=== PATIENT | male | born 1985 | race Caucasian/White ===

== ENCOUNTER 2017-01-22 09:10 | Emergency (ER) | END 2017-01-22 11:26 | disposition home or self-care (01) | DX: J02.9 Acute pharyngitis, unspecified (principal) | CPT/HCPCS: 87880; Z7502 ==

== ENCOUNTER 2017-03-12 09:13 | Emergency (ER) | payer MEDICAID ==
[~2017-03-12] VITALS: Ht 175.3 cm; Wt 93.1 kg
[~2017-03-12 09:13] MED LIST: CETI10CA PO; FLUT16SP17 NASAL
[2017-03-12 09:16] VITALS: Ht 175.3 cm; Wt 93.1 kg
[2017-03-12] MEDS ORDERED: KETOROLAC 30 MG INJ IV STA (09:40)
[2017-03-12 10:14] LABS: BASOPHILS % 0.6 % (0.0-2.0); EOSINOPHILS # 0.2 10^3/ul (0.0-0.5); EOSINOPHILS % 2.6 % (0.0-7.0); HEMATOCRIT 43.3 % (42.0-52.0); LYMPHOCYTES % 28.9 % (15.0-51.0); MEAN CORPUSCULAR HEMOGLOBIN 31.7 pg (29.0-33.0); MEAN CORPUSCULAR HGB CONC 34.6 g/dl (32.0-37.0); MEAN CORPUSCULAR VOLUME 91.5 fl (82.0-101.0); MONOCYTE # 0.5 10^3/ul (0.3-0.9); MONOCYTES % 6.8 % (0.0-11.0); NEUTROPHIL # 4.3 10^3/ul (1.6-7.5); NEUTROPHILS % 60.8 % (39.0-77.0); PLATELET COUNT 181 10^3/UL (140-415); RED BLOOD COUNT 4.73 10^6/ul (4.70-6.10); RED CELL DISTRIBUTION WIDTH 12.2 % (11.5-14.5); WHITE BLOOD COUNT 7.1 10^3/ul (4.8-10.8)
--- NOTE | 2017-03-12 10:22 | RADRPT ---
PROCEDURE: CT Abdomen and pelvis without contrast. CLINICAL INDICATION: Left-sided abdominal pain and flank pain TECHNIQUE: CT scan of the abdomen and pelvis without contrast was performed on a multidetector hig h-resolution CT scan. . Coronal and sagittal reformatted images were obtained from the axial [facility] e images. Standard CT scan of the abdomen pelvis without contrast protocols were performed. The total exam CTDI equals 13.34 mGy and the total exam DLP equals 871.51 mGy-cm. One or more of the following dose reduction techniques were used: - Automated exposure control. - Adjustment of the mA and/or kV according to patient size. Use of iterative reconstruction technique. Dicom images are available COMPARISON: None. FINDINGS: The kidneys are normal in size without calcified renal calculi, hydronephrosis or intra renal masses bilaterally. The ureters and urinary bladder are unremarkable. Prostate unremarkable. No evidence of intra-abdominal free air, free fluid, abscesses or lymphadenopathy. There is moderate wall thickening of the gastric antrum which may be due to lack of optimal distensi on however though other etiologies including gastritis cannot be excluded . Recommend clinical corre lation. Remainder the stomach is unremarkable.. The small bowel, colon and appendix are unremarkable . No CT evidence of appendicitis or diverticulitis. Liver spleen pancreas adrenal glands and gallbladder are unremarkable. No evidence of biliary ductal dilation. Tiny umbilical fat-containing hernia without herniated bowel or strangulation. Aorta unremarkable. L lei bases unremarkable. Osseous structures unremarkable. IMPRESSION: 1. No evidence of calcified urinary calculi or obstructive uropathy. 2. No evidence of appendicitis or diverticulitis. 3. Moderate wall thickening of the gastric antrum likely due to lack of optimal distension. Other e tiologies including gastritis cannot be excluded. Recommend clinical correlation. 4. Tiny umbilical fat-containing hernia without herniated bowel or strangulation. RPTAT:AAJJ Physician Willie Date Time Electronically viewed and signed by Physician Willie on 03/12/2017 10:21 BM/
--- NOTE | 2017-03-12 10:32 | ERD ---
ER Documentation Chief Complaint Chief Complaint abdominal pain x 2 weeks HPI This is a 31-year-old male presents the emergency department today complaining of abdominal pain and left-sided flank pain for the past 2 weeks that is worse over the past couple of days. States he did take medication for the pain but he is unsure what it is. Denies any constipation, dysuria, fevers or chills, nausea or vomiting. ROS All systems reviewed and are negative except as per history of present illness. Medications Home Meds Active Scripts Cyclobenzaprine Hcl* (Cyclobenzaprine Hcl*) 10 Mg Tablet, 10 MG PO QHS, #7 TAB Prov:SARAH RILEY PA-C 03/12/17 Naproxen* (Naprosyn*) 500 Mg Tablet, 500 MG PO BID Y for PAIN AND/OR INFLAMMATION, #30 TAB Prov:SARAH RILEY PA-C 03/12/17 Cetirizine Hcl* (Zyrtec*) 10 Mg Capsule, 10 MG PO DAILY, #30 TAB.CHEW Prov:EZEKIEL PINK PA-C 01/22/17 Fluticasone Propionate* (Fluticasone Propionate* Nasal) 50 Mcg/[place] - 16 Gm [place].susp, 1 SPRAY NASAL BID, #1 BOTTLE TO EACH NOSTRIL Prov:EZEKIEL PINK PA-C 01/22/17 Allergies Allergies: Coded Allergies: No Known Allergy (Unverified , 01/22/17) PMhx/Soc History of Surgery: No Anesthesia Reaction: No Hx Neurological Disorder: No Hx Respiratory Disorders: No Hx Cardiac Disorders: No Hx Psychiatric Problems: No Hx Miscellaneous Medical Probl: No Hx Alcohol Use: No Hx Substance Use: No Hx Tobacco Use: No Smoking Status: Never smoker Physical Exam Vitals Vital Signs Date Time Temp Pulse Resp B/P Pulse Ox O2 Delivery O2 Flow Rate FiO2 03/12/17 09:16 98.0 95 18 135/74 98 Physical Exam Const: NAD Head: Atraumatic Eyes: Normal Conjunctiva ENT: Normal External Ears, Nose and Mouth. Neck: Full range of motion..~ No meningismus. Resp: Clear to auscultation bilaterally Cardio: Regular rate and rhythm, no murmurs Abd: Soft,left sided abdominal and pelvic pain non distended. Normal bowel sounds Skin: No petechiae or rashes Back: Lumbar spine no midline units. Left-sided flank pain. No CVA tenderness. Ext: No cyanosis, or edema Neur: Awake and alert Psych: Normal Mood and Affect Result Diagram: 03/12/17 0950 03/12/17 0950 Results 24 hrs Laboratory Tests Test 03/12/17 09:50 03/12/17 10:19 White Blood Count 7.110^3/ul Red Blood Count 4.7310^6/ul Hemoglobin 15.0g/dl Hematocrit 43.3% Mean Corpuscular Volume 91.5fl Mean Corpuscular Hemoglobin 31.7pg Mean Corpuscular Hemoglobin Concent 34.6g/dl Red Cell Distribution Width 12.2% Platelet Count 92200^3/UL Mean Platelet Volume 12.0fl Neutrophils % 60.8% Lymphocytes % 28.9% Monocytes % 6.8% Eosinophils % 2.6% Basophils % 0.6% Nucleated Red Blood Cells % 0.0/100WBC Neutrophils # 4.310^3/ul Lymphocytes # 2.010^3/ul Monocytes # 0.510^3/ul Eosinophils # 0.210^3/ul Basophils # 0.010^3/ul Nucleated Red Blood Cells # 0.010^3/ul Sodium Level 143mmol/L Potassium Level 3.8mmol/L Chloride Level 106mmol/L Carbon Dioxide Level 25mmol/L Anion Gap 16 Blood Urea Nitrogen 14mg/dl Creatinine 0.79mg/dl Glucose Level 118mg/dl Calcium Level 10.1mg/dl Total Bilirubin 0.3mg/dl Direct Bilirubin 0.00mg/dl Indirect Bilirubin 0.3mg/dl Aspartate Amino Transf (AST/SGOT) 30IU/L Alanine Aminotransferase (ALT/SGPT) 55IU/L Alkaline Phosphatase 83IU/L Total Protein 8.2g/dl Albumin 4.5g/dl Globulin 3.70g/dl Albumin/Globulin Ratio 1.21 Lipase 53U/L Urine Color YELLOW Urine Clarity CLEAR Urine pH 5.0 Urine Specific [place] 1.017 Urine Ketones NEGATIVEmg/dL Urine Nitrite NEGATIVEmg/dL Urine Bilirubin NEGATIVEmg/dL Urine Urobilinogen NEGATIVEmg/dL Urine Leukocyte Esterase NEGATIVELeu/ul Urine Microscopic RBC 0/HPF Urine Microscopic WBC 0/HPF Urine Hemoglobin 1+mg/dL Urine Glucose NEGATIVEmg/dL Urine Total Protein NEGATIVEmg/dl Current Medications Medications (Trade) Dose Ordered Sig/Mary Route PRN Reason Start Time Stop Time Status Last Admin Dose Admin Ketorolac Tromethamine (Toradol) 30 mg ONCE STAT IV 03/12/17 09:40 03/12/17 09:41 DC 03/12/17 09:51 DIAGNOSTIC IMAGING REPORT Patient: VETO PAL : 1985 Age: 31 Sex: M MR #: [id number] DOS: 03/12/1740 Ordering MD: SARAH RILEY PA-C Location: [facility] Room/Bed: PROCEDURE: CT Abdomen and pelvis without contrast. CLINICAL INDICATION: Left-sided abdominal pain and flank pain TECHNIQUE: CT scan of the abdomen and pelvis without contrast was performed on a multidetector high-resolution CT scan. . Coronal and sagittal reformatted images were obtained from the axial source images. Standard CT scan of the abdomen pelvis without contrast protocols were performed. The total exam CTDI equals 13.34 mGy and the total exam DLP equals 871.51 mGy- cm. One or more of the following dose reduction techniques were used: - Automated exposure control. - Adjustment of the mA and/or kV according to patient size. Use of iterative reconstruction technique. Dicom images are available COMPARISON: None. FINDINGS: The kidneys are normal in size without calcified renal calculi, hydronephrosis or intra renal masses bilaterally. The ureters and urinary bladder are unremarkable. Prostate unremarkable. No evidence of intra-abdominal free air, free fluid, abscesses or lymphadenopathy. There is moderate wall thickening of the gastric antrum which may be due to lack of optimal distension however though other etiologies including gastritis cannot be excluded . Recommend clinical correlation. Remainder the stomach is unremarkable.. The small bowel, colon and appendix are unremarkable. No CT evidence of appendicitis or diverticulitis. Liver spleen pancreas adrenal glands and gallbladder are unremarkable. No evidence of biliary ductal dilation. Tiny umbilical fat-containing hernia without herniated bowel or strangulation. Aorta unremarkable. Lung bases unremarkable. Osseous structures unremarkable. IMPRESSION: 1. No evidence of calcified urinary calculi or obstructive uropathy. 2. No evidence of appendicitis or diverticulitis. 3. Moderate wall thickening of the gastric antrum likely due to lack of optimal distension. Other etiologies including gastritis cannot be excluded. Recommend clinical correlation. 4. Tiny umbilical fat-containing hernia without herniated bowel or strangulation. RPTAT:AAJJ Physician Willie Date Time Electronically viewed and signed by Earl Riley Physician on 03/12/2017 10:21 BM/ CC: SARAH RILEY PA-C Procedures/MDM This a 31-year-old male who presents the emergency department today complaining of left-sided abdominal pain and flank pain for the past 2 weeks that is worse for the past couple of days. Given patient's complaints and physical exam I did obtain laboratory work as well as imaging Laboratory workup shows no elevated white blood cell count. He is not anemic. Platelets are within normal limits. Electrolytes are within normal limits. Glucose is within normal limits. Liver enzymes are within normal limits. Lipase is within normal limits. UA is negative for infection. 1+ hemoglobin with no microscopic red blood cells. CT abdomen pelvis shows no evidence of calcified urinary calculi or obstructive uropathy. There is no evidence of appendicitis or diverticulitis. There is moderate wall thickening of the gastric antrum likely due to lack of optimal distention. Other etiologies including gastritis cannot be excluded. There is a tiny umbilical fat-containing hernia without herniated bowel or strangulation. Patient has abdominal and back pain of uncertain etiology. His back pain may be musculoskeletal nature. He is afebrile and otherwise well-appearing have low suspicion for sepsis, cauda equina or abscess. He has no loss of bowel or bladder control. Low suspicion for acute fracture dislocation. Patient has no midline tenderness I do not feel he requires imaging at this time. Low suspicion for acute surgical abdomen. Given Toradol here in the emergency department. He will be given a prescription for Naprosyn extra for home. Patient was also requesting referral information dentist. He was given information for [facility] At this time the patient is stable for discharge and outpatient management. Patient should follow up with their PCP in the next 1-2 days. They may return to the emergency department sooner for any persistent or worsening of symptoms. Patient understood and agreed with the plan. Discussed patient with Dr. Amaya and she is in agreement with the plan. Departure Diagnosis: Primary Impression: Abdominal pain Abdominal location: left lower quadrant Qualified Code: R10.32 - Left lower quadrant pain Additional Impression: Back pain Back pain location: low back pain Chronicity: unspecified Back pain laterality: left Sciatica presence: without sciatica Qualified Code: M54.5 - Left-sided low back pain without sciatica, unspecified chronicity Condition: SARAH Sparks PA-C Mar 12, 2017 10:32
[2017-03-12 10:39] LABS: ALBUMIN 4.5 g/dl (3.3-4.9); ALBUMIN/GLOBULIN RATIO 1.21; BILIRUBIN,INDIRECT 0.3 mg/dl (0-1.1); BILIRUBIN,TOTAL 0.3 mg/dl (0.2-1.3); CALCIUM 10.1 mg/dl (8.4-10.2); CREATININE 0.79 mg/dl (0.61-1.24); POTASSIUM 3.8 mmol/L (3.5-5.1); TOTAL PROTEIN 8.2 g/dl (6.1-8.1)
[2017-03-12 10:41] LABS: ADD UMIC YES; UR ASCORBIC ACID NEGATIVE (NEGATIVE); UR BILIRUBIN (Dip) NEGATIVE (NEGATIVE); UR BLOOD (Dip) 1+ mg/dL (NEGATIVE); UR CLARITY CLEAR (CLEAR); UR COLOR YELLOW (YELLOW); UR GLUCOSE (Dip) NEGATIVE (NEGATIVE); UR KETONES (Dip) NEGATIVE (NEGATIVE); UR LEUKOCYTE ESTERASE (Dip) NEGATIVE Leu/ul (NEGATIVE); UR NITRITE (Dip) NEGATIVE (NEGATIVE); UR RBC 0 /HPF (0-5); UR SPECIFIC GRAVITY (Dip) 1.017 (1.003-1.030); UR TOTAL PROTEIN (Dip) NEGATIVE (NEGATIVE); UR UROBILINOGEN (Dip) NEGATIVE (NEGATIVE)
[2017-03-12] MEDS ORDERED: NAPR-260 PO (11:23)
[2017-03-12] MEDS ORDERED: CYCL-319 PO (11:24)
== END 2017-03-12 11:30 | disposition home or self-care (01) ==
LOC: FTE 09:13
DX: R10.32 Left lower quadrant pain (principal); M54.5 Low back pain
CPT/HCPCS: 74176; 80053; 81001; 83690; 85025; 96374; J1885; Z7502

== ENCOUNTER 2017-05-18 19:07 | Emergency (ER) | END 2017-05-19 00:19 | disposition home or self-care (01) ==

== ENCOUNTER 2018-10-14 21:32 | Emergency (ER) | payer MEDICAID, OTHER ==
[~2018-10-14] VITALS: Ht 175.3 cm; Wt 93.0 kg
[~2018-10-14 21:32] MED LIST changes: +CYCL10TA7 PO; +HYDR-4011 PO; +IBUP-1542 PO; +NAPR-985 PO; +PSEU-79 PO
[2018-10-14 21:36] VITALS: Ht 175.3 cm; Wt 93.0 kg
[2018-10-14] MEDS ORDERED: TETRACAINE 0.5% 4 ML OPH LEFT EYE ONE (23:00)
[2018-10-14] MEDS ORDERED: FLUORESCEIN STRIP LEFT EYE ONE (23:00)
[2018-10-15 00:40] VITALS: BP 134/92; PULSE 63; RESP 20
--- NOTE | 2018-10-15 00:40 | ERD ---
ER Documentation Chief Complaint Chief Complaint painful& red sclera of L eye, he said he feels the "lens is moving" HPI This is a 33-year-old male with no significant past medical history who is presenting with a foreign body sensation in the left eye. The patient reports that his eye was irritated and red earlier today. He thought that there is may be something in his eye. He touched his eyes and felt a thin film,. He does not endorse getting anything into the eye. He does not wear contacts. The patient still feels that the eye is slightly irritated, but he does currently report improvement. The patient does not have any visual acuity changes. He does not endorse any crusting or purulence from the eye. The patient has no other complaints. The patient denies feeling sick recently. The patient denies fever or chills. The patient has had no headache or vision changes. The patient does not endorse neck or back pain. The patient denies lightheadedness or dizziness. The patient has had no chest pain or trouble breathing. The patient denies nausea or vomiting. The patient denies abdominal pain. The patient denies changes to bowel movements or urination. The patient has had no focal deficits. The patient has had no weakness or numbness or tingling to the face or extremities. ROS All systems reviewed and are negative except as per history of present illness. Medications Home Meds Active Scripts Naproxen* (Naprosyn*) 500 Mg Tablet, 500 MG PO BID PRN for PAIN AND/OR INFLAMMATION, #30 TAB Prov:VINICIUS THOMAS PA-C 05/26/18 Pseudoephedrine Hcl* (Suphedrin*) 30 Mg Tablet, 30 MG PO Q6 PRN for CONGESTION, #30 TAB Prov:VINICIUS THOMAS PA-C 05/26/18 Ibuprofen* (Motrin*) 600 Mg Tab, 600 MG PO Q6, #30 TAB Prov:KARLENE VALENTINE PA-C 05/18/17 Hydrocodone/Acetaminophen ([place] 5-325 Tablet) 1 Each Tablet, 1 TAB PO Q6H PRN for PAIN, #15 TAB Prov:KARLENE VALENTINE PA-C 05/18/17 Cyclobenzaprine Hcl* (Cyclobenzaprine Hcl*) 10 Mg Tablet, 10 MG PO QHS, #7 TAB Prov:PROUSE,SARAH M. PA-C 03/12/17 Naproxen* (Naprosyn*) 500 Mg Tablet, 500 MG PO BID PRN for PAIN AND/OR INFLAMMATION, #30 TAB Prov:SARAH RILEY PA-C 03/12/17 Cetirizine Hcl* (Zyrtec*) 10 Mg Capsule, 10 MG PO DAILY, #30 TAB.CHEW Prov:EZEKIEL PINK PA-C 01/22/17 Fluticasone Propionate* (Fluticasone Propionate* Nasal) 50 Mcg/[place] - 16 Gm [place].susp, 1 SPRAY NASAL BID, #1 BOTTLE TO EACH NOSTRIL Prov:EZEKIEL PINK PA-C 01/22/17 Allergies Allergies: Coded Allergies: No Known Allergy (Unverified , 01/22/17) PMhx/Soc Medical and Surgical Hx: pt denies Medical Hx, pt denies Surgical Hx History of Surgery: No Anesthesia Reaction: No Hx Neurological Disorder: No Hx Respiratory Disorders: No Hx Cardiac Disorders: No Hx Psychiatric Problems: No Hx Miscellaneous Medical Probl: No Hx Alcohol Use: No Hx Substance Use: No Hx Tobacco Use: No Smoking Status: Never smoker FmHx Family History: No diabetes Physical Exam Vitals Vital Signs Date Temp Pulse Resp B/P (MAP) Pulse Ox O2 O2 Flow FiO2 Time Delivery Rate 10/14/18 88 20 160/102 98 Room Air 22:00 (121) 10/14/18 98.3 86 18 151/86 96 21:36 (107) Physical Exam Const: No acute distress Head: Atraumatic Eyes: Normal Conjunctiva. Pupils equal, round and reactive to light. Extraocular movements intact. No discharge. Visual acuity is 20/15 bilaterally. Visual w[place] are intact. Floor seen exam is normal. ENT: Normal External Ears, Nose and Mouth. Neck: Full range of motion. No meningismus. Resp: Clear to auscultation bilaterally Cardio: Regular rate and rhythm, no murmurs Abd: Soft, non tender, non distended. Normal bowel sounds Skin: No petechiae or rashes Back: No midline or flank tenderness Ext: No cyanosis, or edema Neur: Awake and alert Psych: Normal Mood and Affect Results 24 hrs Current Medications Medications Dose Sig/Mary Start Time Status Last (Trade) Ordered Route PRN Stop Time Admin Dose Reason Admin Tetracaine 1 drop ONCE ONCE 10/14/18 DC HCl LEFT EYE 23:00 (Tetracaine 10/14/18 23:01 0.5% Steri-Unit Jaleesa) Fluorescein 1 strip ONCE ONCE 10/14/18 DC Sodium LEFT EYE 23:00 ([id number] 10/14/18 23:01 p) Procedures/MDM MDM The patient presents for irritation and a foreign body sensation to the left eye. The patient's eye was washed out in the emergency department, which improved his symptoms immensely. A fluorescein exam was also completed that did not reveal any evidence of foreign body, ulcer or corneal abrasion. Tetracaine was utilized to place the fluorescein, which also continued to improve his symptoms. I do not see any evidence of conjunctivitis. I do not suspect blepharitis or chalazion or stye. There is no evidence of iritis or endophthalmitis. There is no evidence of trauma or injury. The patient does not endorse any visual acuity changes. His vision is not blurry. I do not suspect CRAO or CRVO. I do not suspect retinal pathology. I do not suspect MS. The patient does not endorse a headache. I do feel the patient may follow-up in an outpatient setting as needed. DISCHARGE Upon reevaluation of the patient, symptoms have improved. No emergent diagnoses were identified. At this time, I feel that the patient stable for discharge. The patient was instructed to follow-up with a primary care physician in 1-3 days. The patient will be given strict precautions with which to return to the emergency department. Prescriptions: None The patient's blood pressure was elevated at greater than 120/80 while in the emergency department. The patient was otherwise stable with no evidence of hypertensive urgency or emergency. The patient does not require admission for blood pressure control. I have discussed with the patient the risks of hypertension. I have instructed the patient to return to the ER for any new or worsening symptoms including chest pain, shortness of breath, headache, blurred vision, confusion, nausea, vomiting or LOC. I have advised the patient to follow up with the primary care physician for outpatient monitoring and treatment for hypertension in 1-3 days. Disclaimer: Inadvertent spelling and grammatical errors are likely due to EHR/dictation software use and do not reflect on the overall quality of patient care. Note that the electronic time recorded on this note does not necessarily reflect the actual time of the patient encounter. Departure Diagnosis: Primary Impression: Sensation of foreign body in eye Condition: Stable Patient Instructions: Foreign Object in the Cornea Additional Instructions: Thank you for for coming to [facility] for your care today. Please ask your nurse or provider if you have questions about your care today and do not leave until all your questions have been answered. Please use any medications given as directed and follow-up with your doctor (or the doctor you were referred to) in the next 1-3 days. If you do not have a primary care doctor you may follow up at the [facility] [place] [facility] (listed below). You may also use motrin and tylenol as needed for fever and/or pain unless instructed otherwise by your provider or nurse. Indications for more urgent follow-up have been discussed, but you may return to the Emergency Department at ANY time for any worrisome or worsening symptoms. If you have abdominal pain, please know that no test or exam you received is perfect and you should follow up within 8 hours for continued pain. If you had any imaging studies today, such as an X-Ray or CT Scan, these studies will be reviewed later by a radiologist. You will be called if there are important findings that were not identified today, so make sure the contact information you provided at registration is correct. If you received any narcotic pain control medicine today, such as Vicodin, Morphine or Dilaudid, your coordination and judgment may be affected for a number of hours. Please do not drive or operate heavy machinery, and you may want someone to assist you at home. If you were given a prescription for narcotic medication, be aware that it is very addictive- use sparingly and only if necessary. PLEASE SEEK FURTHER EVALUATION AND MANAGEMENT AT YOUR DOCTORS OFFICE WITHIN THE NEXT 1-3 DAYS. IT IS YOUR RESPONSIBILITY TO MAKE AN APPOINTMENT FOR FOLOW-UP CARE. IF YOU HAVE A PRIMARY DOCTOR, PLEASE CALL THEIR OFFICE TO SCHEDULE AN APPOINTMENT FOR FOLLOW UP. IF YOU DO NOT HAVE A PRIMARY DOCTOR YOU CAN CALL OUR PHYSICIAN REFERRAL HOTLINE AT IF YOU CAN NOT AFFORD TO SEE A PHYSICIAN YOU CAN CHOSE FROM THE FOLLOWING [facility] CL[facility]ICS: [facility] [id number] [facility] [address] [facility] [id number] [facility] [facility] [address] [facility] [address] [facility] [address] [facility]. [facility]. [address] JOSE JUAN FREIRE MD Oct 15, 2018 00:40
== END 2018-10-15 00:56 | disposition home or self-care (01) ==
LOC: E/R 21:32
DX: T15.92XA Foreign body on external eye, part unspecified, left eye, initial encounter (principal); X58.XXXA Exposure to other specified factors, initial encounter; Y92.9 Unspecified place or not applicable
CPT/HCPCS: 99283

== ENCOUNTER → 2018-11-28 | Emergency (ER) | payer MEDICAID ==
[~2018-11-28] VITALS: Ht 182.9 cm; Wt 91.5 kg
[~2018-11-28] MED LIST changes: +ELIM TOP
[2018-11-28 13:23] VITALS: BP 133/73; PULSE 73; RESP 16; Ht 182.9 cm; Wt 91.5 kg
--- NOTE | 2018-11-28 14:28 | ERD ---
ER Documentation Chief Complaint Chief Complaint rash x 1 month HPI 33-year-old male presenting with a rash to bilateral hands. This is been going on for the last month. At first his sons developed a rash and then he has developed a rash to his hands. Patient has not applied any medications to the affected area that is very itchy. Itching is worse at night. Denies other medical problems. NKDA. Surgical history denies. Social history denies ROS All systems reviewed and are negative except as per history of present illness. Medications Home Meds Active Scripts Permethrin* (Elimite*) 5% Cr, 1 APPLIC TOP ONCE, #1 TUB Prov:VINICIUS THOMAS PA-C 11/28/18 Naproxen* (Naprosyn*) 500 Mg Tablet, 500 MG PO BID PRN for PAIN AND/OR INFLAMMATION, #30 TAB Prov:VINICIUS THOMAS PA-C 05/26/18 Pseudoephedrine Hcl* (Suphedrin*) 30 Mg Tablet, 30 MG PO Q6 PRN for CONGESTION, #30 TAB Prov:VINICIUS THOMAS PA-C 05/26/18 Ibuprofen* (Motrin*) 600 Mg Tab, 600 MG PO Q6, #30 TAB Prov:KARLENE VALENTINE PA-C 05/18/17 Hydrocodone/Acetaminophen ([place] 5-325 Tablet) 1 Each Tablet, 1 TAB PO Q6H PRN for PAIN, #15 TAB Prov:KARLENE VALENTINE PA-C 05/18/17 Cyclobenzaprine Hcl* (Cyclobenzaprine Hcl*) 10 Mg Tablet, 10 MG PO QHS, #7 TAB Prov:SARAH RILEY PA-C 03/12/17 Naproxen* (Naprosyn*) 500 Mg Tablet, 500 MG PO BID PRN for PAIN AND/OR INFLAMMATION, #30 TAB Prov:SARAH RILEY PA-C 03/12/17 Cetirizine Hcl* (Zyrtec*) 10 Mg Capsule, 10 MG PO DAILY, #30 TAB.CHEW Prov:EZEKIEL PINK PA-C 01/22/17 Fluticasone Propionate* (Fluticasone Propionate* Nasal) 50 Mcg/[place] - 16 Gm [place].susp, 1 SPRAY NASAL BID, #1 BOTTLE TO EACH NOSTRIL Prov:EZEKIEL PINK PA-C 01/22/17 Allergies Allergies: Coded Allergies: No Known Allergy (Unverified , 01/22/17) PMhx/Soc Medical and Surgical Hx: pt denies Medical Hx, pt denies Surgical Hx History of Surgery: No Anesthesia Reaction: No Hx Neurological Disorder: No Hx Respiratory Disorders: No Hx Cardiac Disorders: No Hx Psychiatric Problems: No Hx Miscellaneous Medical Probl: No Hx Alcohol Use: No Hx Substance Use: No Hx Tobacco Use: No Smoking Status: Never smoker FmHx Family History: No diabetes, No coronary disease, No other Physical Exam Vitals Vital Signs Date Temp Pulse Resp B/P (MAP) Pulse Ox O2 O2 Flow FiO2 Time Delivery Rate 11/28/18 98.3 73 16 133/73 97 13:23 (93) Physical Exam GENERAL: The patient is well-appearing, well-nourished, in no acute distress HEART: Regular rate and rhythm. No murmurs, clicks, rubs or gallops. EXTREMITIES: Equal pulses bilaterally. There is no peripheral clubbing, cyanosis or edema. No focal swelling or erythema. Full range of motion. Grossly neurovascularly intact. NEUROLOGIC: Alert and oriented. Cranial nerves II through XII intact. Motor strength in all 4 extremities with 5 out of 5 strength. Sensation grossly intact. Normal speech and gait. SKIN: Small excoriated lesions noted on bilateral hands. No vesicles or pustules. No foreign bodies. Procedures/MDM DM: 33-year-old male presenting with a rash to hands. Given patient's and had a rash first and then he developed a rash is very pruritic. I have concern for scabies. Patient's son have tried Benadryl and hydrocortisone with no alleviation so I recommended trying permethrin to prevent against parasitic infection. I have low suspicion for bacterial infection or viral infection. S he is discharged with strict ER precautions and told to follow-up with primary care within 1 to 2 days for close evaluation. Patient is told symptoms change or worsen to return immediately to the ER. All questions answered at discharge Departure Diagnosis: Primary Impression: Scabies Condition: Stable Patient Instructions: Scabies Referrals: COMM[facility] YOU HAVE RECEIVED A MEDICAL SCREENING EXAM AND THE RESULTS INDICATE THAT YOU DO NOT HAVE A CONDITION THAT REQUIRES URGENT TREATMENT IN THE EMERGENCY DEPARTMENT. FURTHER EVALUATION AND TREATMENT OF YOUR CONDITION CAN WAIT UNTIL YOU ARE SEEN IN YOUR DOCTORS OFFICE WITHIN THE NEXT 1-2 DAYS. IT IS YOUR RESPONSIBILITY TO MAKE AN APPOINTMENT FOR FOLOW-UP CARE. IF YOU HAVE A PRIMARY DOCTOR --you should call your primary doctor and schedule an appointment IF YOU DO NOT HAVE A PRIMARY DOCTOR YOU CAN CALL OUR PHYSICIAN REFERRAL HOTLINE AT IF YOU CAN NOT AFFORD TO SEE A PHYSICIAN YOU CAN CHOSE FROM THE FOLLOWING [facility] CLINICS [facility] [address] [facility] [address] [facility] [address] [facility] [address] [facility] [address] [facility]. [facility]. [address] Additional Instructions: FOLLOW UP WITH YOUR PRIMARY CARE PHYSICIAN TOMORROW.Return to this facility if you are not improving as expected. VINICIUS THOMAS PA-C Nov 28, 2018 14:28
== END | disposition home or self-care (01) ==
LOC: FTE 13:16
DX: B86 Scabies (principal)
CPT/HCPCS: 99282